=== PATIENT | male | born 1995 | race Caucasian/White ===

== ENCOUNTER 2021-04-05 22:13 | Emergency (ER) | payer OTHER ==
[~2021-04-05] VITALS: Ht 177.8 cm; Wt 78.0 kg
[2021-04-05] MEDS ORDERED: SILVADENE20 GM T (22:37)
== END 2021-04-05 22:38 | disposition home or self-care (01) ==
LOC: ED 22:13
DX: T23.391A Burn of third degree of multiple sites of right wrist and hand, initial encounter (principal); T23.191A Burn of first degree of multiple sites of right wrist and hand, initial encounter; X08.8XXA Exposure to other specified smoke, fire and flames, initial encounter; Y93.89 Activity, other specified; Y92.89 Other specified places as the place of occurrence of the external cause; Y99.8 Other external cause status

== ENCOUNTER → 2021-04-11 | Outpatient (CLI) | payer OTHER ==
[~2021-04-11] MED LIST: SILVADENE20 GM T
== END ==
LOC: WOUNDCARE 07:55
PROVIDERS: ATTEND Nurse Practitioner
DX: T23.361A Burn of third degree of back of right hand, initial encounter (principal); T22.311A Burn of third degree of right forearm, initial encounter; T23.231A Burn of second degree of multiple right fingers (nail), not including thumb, initial encounter; T31.0 Burns involving less than 10% of body surface; Z87.891 Personal history of nicotine dependence; X12.XXXA Contact with other hot fluids, initial encounter; Y93.89 Activity, other specified; Y92.89 Other specified places as the place of occurrence of the external cause; Y99.8 Other external cause status

== ENCOUNTER → 2021-04-17 | Outpatient (CLI) | payer OTHER | LOC: WOUNDCARE 01:16 | PROVIDERS: ATTEND Nurse Practitioner | DX: T23.361D Burn of third degree of back of right hand, subsequent encounter (principal); T23.231D Burn of second degree of multiple right fingers (nail), not including thumb, subsequent encounter; T31.0 Burns involving less than 10% of body surface; Z87.891 Personal history of nicotine dependence; X12.XXXD Contact with other hot fluids, subsequent encounter ==

== ENCOUNTER 2024-04-16 09:11 | Emergency (ER) | payer BC ==
[~2024-04-16] VITALS: Ht 180.3 cm; Wt 86.2 kg
[2024-04-16 10:19] LABS: BASO # 0.1 10*3/uL (0.0-0.1); BASO % 0.5 % (0.0-1.0); EOS # 0.2 10*3/uL (0.0-0.4); EOS % 1.6 % (1.0-4.0); HEMATOCRIT 45.3 % (42.0-52.0); LYMPH % 21.5 % (27.0-41.0); MEAN CELL VOLUME 93.2 fl (80.0-94.0); MEAN CORPUSCULAR HGB 33.1 pg (27.0-31.0); MEAN CORPUSCULAR HGB CONC 35.5 g/dl (33.0-37.0); MONO # 0.6 10*3/uL (0.1-1.0); MONO % 6.6 % (3.0-9.0); NEUT # 6.5 10*3/uL (2.3-7.9); NEUT % 69.3 % (47.0-73.0); PLATELET COUNT AUTOMATED 325 10*3/uL (130-400); RED BLOOD COUNT 4.86 10*6/uL (4.50-5.90); RED CELL DISTRI WIDTH 12.3 % (0-14.5); WHITE BLOOD COUNT 9.4 10*3/uL (4.8-10.8)
[2024-04-16 10:30] LABS: ACT PARTIAL THROMBO TIME 28.6 SECONDS (20.0-32.1)
[2024-04-16 10:43] LABS: ALKALINE PHOSPHATASE 49 U/L (46-116); BUN 9 mg/dl (9-23); CHLORIDE 106 mmol/L (98-107); POTASSIUM 4.3 mmol/L (3.4-5.1); SGPT/ALT 16 U/L (5-49); TOTAL PROTEIN 7.7 gm/dL (6.0-8.0)
== END 2024-04-16 11:07 | disposition home or self-care (01) ==
LOC: ED 09:11
PROVIDERS: Emergency Medicine
DX: K62.5 Hemorrhage of anus and rectum (principal); Z87.891 Personal history of nicotine dependence